=== PATIENT | female | born 1960 | race Caucasian/White ===

== ENCOUNTER 2018-09-16 20:20 | Observation (INO) | payer BC ==
--- NOTE | 2018-09-16 20:23 | ERPHSYRPT ---
- History of Present Illness Time Seen by Provider: 09/16/18 20:23 Historian: patient Exam Limitations: no limitations Physician History: 58 y/o white female presents with 2 hour h/o of gradually worsening generalized abd pain. no associated n/v/d. no cp. no prior abd surgeries. pt has not had a good bm in several day. never had this before. pt has been worked up for gallbladder issues but was feeling better so never completed workup and did not schedule HIDA scan she was suppose to. denies trauma to abd Timing/Duration: hour(s) (2), sudden, worse Activities at Onset: other (pt had long mamie reynaldo for lunch and pizza for supper. ) Abdominal Pain Onset Location: generalized abdomen Pain Radiation: no radiation Severity of Pain-Max: moderate Severity of Pain-Current: moderate Associated Symptoms: No diarrhea, No nausea, No vomiting Previous symptoms: no prior history Allergies/Adverse Reactions: No Known Drug Allergies Allergy (Unverified 04/24/12 11:20) Home Medications: No Reportable Medications [No Reported Medications] 09/16/18 [History] Hx Influenza Vaccination/Date Given: No Hx Pneumococcal Vaccination/Date Given: No - Review of Systems Constitutional: No Symptoms Eyes: No Symptoms Ears, Nose, & Throat: No Symptoms Respiratory: No Symptoms Cardiac: No Symptoms Abdominal/Gastrointestinal: Abdominal Pain (generalized), No Nausea, No Vomiting , No Diarrhea Genitourinary Symptoms: No Symptoms Musculoskeletal: No Symptoms Skin: No Symptoms Neurological: No Symptoms Psychological: No Symptoms Endocrine: No Symptoms Hematologic/Lymphatic: No Symptoms Immunological/Allergic: No Symptoms All Other Systems: Reviewed and Negative - Past Medical History Pertinent Past Medical History: Yes Neurological History: No Pertinent History ENT History: No Pertinent History Cardiac History: No Pertinent History Respiratory History: No Pertinent History Endocrine Medical History: No Pertinent History Musculoskeletal History: No Pertinent History GI Medical History: Gallbladder Disease, GI Bleed, Polyps History: No Pertinent History Psycho-Social History: No Pertinent History Female Reproductive Disorders: No Pertinent History Other Medical History: anemia inpast - Past Surgical History Past Surgical History: Yes Neuro Surgical History: No Pertinent History Cardiac: No Pertinent History Respiratory: No Pertinent History Gastrointestinal: No Pertinent History Genitourinary: No Pertinent History Musculoskeletal: No Pertinent History Female Surgical History: Tubal Ligation - Social History Smoking Status: Former smoker Drug Use: none - Nursing Vital Signs Nursing Vital Signs: Initial Vital Signs Temperature 97.7 F 09/16/18 20:37 Pulse Rate 85 09/16/18 20:37 Respiratory Rate 17 09/16/18 20:37 Blood Pressure 138/76 09/16/18 20:37 O2 Sat by Pulse Oximetry 100 09/16/18 20:37 Pain Scale Pain Intensity 6 - Physical Exam General Appearance: moderate distress, alert, anxiety, thin Eye Exam: PERRL/EOMI, eyes nml inspection Ears, Nose, Throat Exam: normal ENT inspection, moist mucous membranes Neck Exam: normal inspection, non-tender, supple, full range of motion Respiratory Exam: normal breath sounds, lungs clear, airway intact, No chest tenderness, No respiratory distress Cardiovascular Exam: regular rate/rhythm, normal heart sounds, normal peripheral pulses Gastrointestinal/Abdomen Exam: soft, normal bowel sounds, tenderness ( generalized), guarding, No rebound Pelvic Exam: not done Rectal Exam: not done Back Exam: normal inspection, normal range of motion, No CVA tenderness, No vertebral tenderness Extremity Exam: normal inspection, normal range of motion, pelvis stable Neurologic Exam: alert, oriented x 3, cooperative, air pollution specialist II-XII nml as tested, normal mood/affect, nml cerebellar function, nml station & gait Skin Exam: normal color, warm, dry Lymphatic Exam: No adenopathy SpO2 Interpretation: normal O2 Delivery: Room Air - Course Nursing assessment & vital signs reviewed: Yes Ordered Tests: Active Orders 24 hr Category Date Time Status Enema STAT Care 09/16/18 21:15 Active Enema STAT Care 09/16/18 22:58 Active IV Insertion STAT Care 09/16/18 20:34 Active ABDOMEN AND PELVIS W/0 CONTRAS [CT] Stat Exams 09/16/18 20:34 Taken AMYLASE Stat Lab 09/16/18 20:35 Completed CBC W DIFF Stat Lab 09/16/18 20:35 Completed CMP Stat Lab 09/16/18 20:35 Completed CULTURE,URINE Stat Lab 09/16/18 21:35 Received LIPASE Stat Lab 09/16/18 20:35 Completed Lactic Acid Stat Lab 09/16/18 20:52 Completed Lactic Acid Stat Lab 09/16/18 23:06 Ordered UA W/RFX UR CULTURE Stat Lab 09/16/18 21:35 Completed Medication Summary Generic Name Dose Route Start Last Admin Trade Name Freq PRN Reason Stop Dose Admin Sodium Chloride 1,000 mls @ 999 mls/hr 09/16/18 23:09 Sodium Chloride 0.9% 1000 Ml IV 09/17/18 00:09 .Q1H1M STA Discontinued Medications Generic Name Dose Route Start Last Admin Trade Name Orion PRN Reason Stop Dose Admin Sodium Chloride 1,000 mls @ 999 mls/hr 09/16/18 20:34 09/16/18 21:45 Sodium Chloride 0.9% 1000 Ml IV 09/16/18 21:34 Infused .Q1H1M STA Infusion Sodium Chloride Confirm 09/16/18 20:38 Sodium Chloride 0.9% 1000 Ml Administered 09/16/18 20:39 Dose 1,000 mls @ ud .ROUTE .STK-MED ONE Magnesium Citrate 150 ml 09/16/18 22:04 09/16/18 22:07 Citroma 296 Ml PO 09/16/18 22:05 150 ml 1XONLY ONE Administration Magnesium Citrate Confirm 09/16/18 22:06 Citroma 296 Ml Administered 09/16/18 22:07 Dose 296 ml .ROUTE .STK-MED ONE Magnesium Citrate 150 ml 09/16/18 22:58 09/16/18 23:01 Citroma 296 Ml PO 09/16/18 22:59 150 ml 1XONLY ONE Administration Meperidine HCl 50 mg 09/16/18 20:35 09/16/18 20:44 Demerol 50 Mg IV 09/16/18 20:36 50 mg STAT ONE Administration Meperidine HCl Confirm 09/16/18 20:38 Demerol 50 Mg Administered 09/16/18 20:39 Dose 50 mg .ROUTE .STK-MED ONE Ondansetron HCl 4 mg 09/16/18 20:34 09/16/18 20:44 Zofran 4 Mg/2 Ml Vial IV 09/16/18 20:35 4 mg STAT ONE Administration Ondansetron HCl Confirm 09/16/18 20:38 Zofran 4 Mg/2 Ml Vial Administered 09/16/18 20:39 Dose 4 mg .ROUTE .STK-MED ONE Potassium Bicarbonate 25 meq 09/16/18 23:45 K-Lyte 25 Meq PO 09/16/18 23:46 STAT ONE Lab/Rad Data: Laboratory Result Diagrams 09/16/18 20:35 09/16/18 20:35 Laboratory Results 09/16/18 09/16/18 09/16/18 Range/Units 21:35 20:52 20:35 WBC (4.0-10.5) K/mm3 RBC (4.1-5.4) M/mm3 Hgb (12.0-16.0) gm/dl Hct (35-47) % MCV (78-100) fl MCH (26-32) pg MCHC (32-36) g/dl RDW (11.5-14.0) % Plt Count (150-450) K/mm3 MPV (6-9.5) fl Gran % (36.0-66.0) % Eos # (Auto) (0-0.5) Absolute Lymphs (auto) (1.0-4.6) Absolute Monos (auto) (0.0-1.3) Lymphocytes % (24.0-44.0) % Monocytes % (0.0-12.0) % Eosinophils % (0.00-5.0) % Basophils % (0.0-0.4) % Absolute Granulocytes (1.4-6.9) Basophils # (0-0.4) Sodium 140 (137-145) mmol/L Potassium 3.1 L (3.5-5.1) mmol/L Chloride 103 (98-107) mmol/L Carbon Dioxide 20 L (22-30) mmol/L Anion Gap 20.4 H (5-15) MEQ/L BUN 16 (7-17) mg/dL Creatinine 0.58 (0.52-1.04) mg/dL Estimated GFR > 60.0 ML/MIN Glucose 141 H (74-106) mg/dL Lactic Acid 5.3 H (0.4-2.0) Calcium 9.9 (8.4-10.2) mg/dL Total Bilirubin 0.50 (0.2-1.3) mg/dL AST 24 (14-36) U/L ALT 20 (0-35) U/L Alkaline Phosphatase 74 (38-126) U/L Serum Total Protein 8.0 (6.3-8.2) g/dL Albumin 4.7 (3.5-5.0) g/dL Amylase 109 (30-110) U/L Lipase 65 (23-300) U/L Urine Color YELLOW (YELLOW) Urine Appearance TURBID (CLEAR) Urine pH 8.0 (5-6) Ur Specific [place] 1.016 (1.005-1.025) Urine Protein NEGATIVE (Negative) Urine Ketones TRACE (NEGATIVE) Urine Blood SMALL (0-5) Baltazar/ul Urine Nitrite NEGATIVE (NEGATIVE) Urine Bilirubin NEGATIVE (NEGATIVE) Urine Urobilinogen NEGATIVE (0-1) mg/dL Ur Leukocyte Esterase NEGATIVE (NEGATIVE) Urine WBC (Auto) 3-5 (0-5) /HPF Urine RBC (Auto) 3-5 (0-2) /HPF U Epithel Cells (Auto) NONE (FEW) /HPF Urine Bacteria (Auto) RARE (NEGATIVE) /HPF Urine Culture Reflexed YES (NO) Urine Glucose 50 (NEGATIVE) mg/dL 09/16/18 Range/Units 20:35 WBC 9.1 (4.0-10.5) K/mm3 RBC 4.31 (4.1-5.4) M/mm3 Hgb 12.7 (12.0-16.0) gm/dl Hct 38.2 (35-47) % MCV 88.6 (78-100) fl MCH 29.5 (26-32) pg MCHC 33.2 (32-36) g/dl RDW 13.1 (11.5-14.0) % Plt Count 300 (150-450) K/mm3 MPV 9.8 H (6-9.5) fl Gran % 48.8 (36.0-66.0) % Eos # (Auto) 0.13 (0-0.5) Absolute Lymphs (auto) 3.63 (1.0-4.6) Absolute Monos (auto) 0.87 (0.0-1.3) Lymphocytes % 39.8 (24.0-44.0) % Monocytes % 9.5 (0.0-12.0) % Eosinophils % 1.4 (0.00-5.0) % Basophils % 0.5 (0.0-0.4) % Absolute Granulocytes 4.44 (1.4-6.9) Basophils # 0.05 (0-0.4) Sodium (137-145) mmol/L Potassium (3.5-5.1) mmol/L Chloride (98-107) mmol/L Carbon Dioxide (22-30) mmol/L Anion Gap (5-15) MEQ/L BUN (7-17) mg/dL Creatinine (0.52-1.04) mg/dL Estimated GFR ML/MIN Glucose (74-106) mg/dL Lactic Acid (0.4-2.0) Calcium (8.4-10.2) mg/dL Total Bilirubin (0.2-1.3) mg/dL AST (14-36) U/L ALT (0-35) U/L Alkaline Phosphatase (38-126) U/L Serum Total Protein (6.3-8.2) g/dL Albumin (3.5-5.0) g/dL Amylase (30-110) U/L Lipase (23-300) U/L Urine Color (YELLOW) Urine Appearance (CLEAR) Urine pH (5-6) Ur Specific [place] (1.005-1.025) Urine Protein (Negative) Urine Ketones (NEGATIVE) Urine Blood (0-5) Baltazar/ul Urine Nitrite (NEGATIVE) Urine Bilirubin (NEGATIVE) Urine Urobilinogen (0-1) mg/dL Ur Leukocyte Esterase (NEGATIVE) Urine WBC (Auto) (0-5) /HPF Urine RBC (Auto) (0-2) /HPF U Epithel Cells (Auto) (FEW) /HPF Urine Bacteria (Auto) (NEGATIVE) /HPF Urine Culture Reflexed (NO) Urine Glucose (NEGATIVE) mg/dL - Progress Progress: improved, re-examined Progress Note: 09/16/18 22:26 ct abd/pelvis-increased fecal retention in colon. no evidence of acute appendicitis. no other acute process. 09/16/18 22:39 pt had moderate bm. sx improved. Counseled pt/family regarding: lab results, diagnosis, need for follow-up, rad results - Departure Departure Disposition: Home Clinical Impression: Constipation, Hypokalemia Condition: Stable Critical Care Time: No Referrals: FINESSE DE LA CRUZ [Primary Care Provider] - Additional Instructions: clear liquid diet for next 12 hours. advance to full liquid diet then regular diet over 12 hours. avoid fatty, greasy spicy foods. follow up with your primary doctor for further management
[2018-09-16] MEDS ORDERED: Zofran 4 MG/2 ML VIAL IV ONE (20:34)
[2018-09-16] MEDS ORDERED: Sodium Chloride 0.9% 1000 ML 1,000 ML IV STA ×2 (20:34→23:09)
[2018-09-16] MEDS ORDERED: DEMEROL 50 MG IV ONE (20:35)
[2018-09-16] MEDS ORDERED: Zofran 4 MG/2 ML VIAL ONE (20:38)
[2018-09-16] MEDS ORDERED: Sodium Chloride 0.9% 1000 ML 1,000 ML ONE (20:38)
[2018-09-16] MEDS ORDERED: DEMEROL 50 MG ONE (20:38)
[2018-09-16 20:51] LABS: BASOPHIL % 0.5 % (0.0-0.4); Basophil (Absolute #) 0.05 (0-0.4); Eosinophil % 1.4 % (0.00-5.0); Eosinophil (Absolute #) 0.13 (0-0.5); Granulocyte Absolute (ANC) 4.44 (1.4-6.9); Granulocytes % 48.8 % (36.0-66.0); Hematocrit 38.2 % (35-47); Hemoglobin 12.7 gm/dl (12.0-16.0); Lymphocyte (Absolute #) 3.63 (1.0-4.6); Lymphocytes % 39.8 % (24.0-44.0); Mean Cell Volume 88.6 fl (78-100); Mean Corpuscular Hemoglobin 29.5 pg (26-32); Mean Corpuscular Hgb Concent. 33.2 g/dl (32-36); Mean Platelet Volume 9.8 fl (6-9.5); Monocytes % 9.5 % (0.0-12.0); Platelet Count 300 K/mm3 (150-450); Red Blood Count 4.31 M/mm3 (4.1-5.4); Red Cell Distribution Width 13.1 % (11.5-14.0); White Blood Count 9.1 K/mm3 (4.0-10.5)
[2018-09-16 20:57] LABS: ALBUMIN 4.7 g/dL (3.5-5.0); ALKALINE PHOSPHATASE 74 U/L (38-126); AMYLASE 109 U/L (30-110); ANION GAP 20.4 MEQ/L (5-15); BLOOD UREA NITROGEN 16 mg/dL (7-17); CHLORIDE 103 mmol/L (98-107); Calcium 9.9 mg/dL (8.4-10.2); Carbon Dioxide 20 mmol/L (22-30); Creatinine 1 0.58 mg/dL (0.52-1.04); Glucose 141 mg/dL (74-106); LIPASE 65 U/L (23-300); SGOT/AST 24 U/L (14-36); SGPT/ALT 20 U/L (0-35); SODIUM 140 mmol/L (137-145)
[2018-09-16 20:59] LABS: Potassium 3.1 mmol/L (3.5-5.1)
[2018-09-16 21:07] LABS: Lactic Acid 5.3 (0.4-2.0)
[2018-09-16 21:57] LABS: Appearance TURBID (CLEAR); Bacteria RARE /HPF (NEGATIVE); Bilirubin NEGATIVE (NEGATIVE); Blood SMALL Ery/ul (0-5); Glucose 50 mg/dL (NEGATIVE); Ketones TRACE (NEGATIVE); Leukocyte Esterase NEGATIVE (NEGATIVE); Nitrite NEGATIVE (NEGATIVE); Protein,Urine Dip NEGATIVE (Negative); Specific Gravity 1.016 (1.005-1.025); Urobilinogen NEGATIVE mg/dL (0-1)
[2018-09-16] MEDS ORDERED: CITROMA 296 ML PO ONE ×2 (22:04→22:58)
[2018-09-16] MEDS ORDERED: CITROMA 296 ML ONE (22:06)
[2018-09-16] MEDS ORDERED: K-LYTE 25 MEQ PO ONE (23:45)
[2018-09-17] MEDS ORDERED: Sodium Chloride 0.9% 1000 ML 1,000 ML ONE (00:17)
[2018-09-17] MEDS ORDERED: K-LYTE 25 MEQ ONE (00:17)
[2018-09-17] MEDS ORDERED: Zofran 4 MG/2 ML VIAL ONE ×2 (00:28→00:35)
[2018-09-17] MEDS ORDERED: Phenergan 25 MG INJ ONE (00:35)
[2018-09-17] MEDS ORDERED: Hydromorphone 1 mg/ml Ampule ONE (01:39)
[2018-09-17] MEDS ORDERED: MAALOX ES 30 ML UNIT DOSE ONE (02:28)
[2018-09-17] MEDS ORDERED: XYLOCAINE HCl Viscous ONE (02:28)
[2018-09-17] MEDS ORDERED: Pepcid 20 MG VIAL IV ONE (02:42)
[2018-09-17] MEDS ORDERED: Sodium Chloride 0.9% W/ 20 mEq KCl/LITER 1,000 ML IV ONE (02:44)
[2018-09-17] MEDS ORDERED: Hydromorphone 1 mg/ml Ampule IV PRN (03:51)
[2018-09-17] MEDS ORDERED: Zofran 4 MG/2 ML VIAL IV PRN (03:53)
[2018-09-17] MEDS ORDERED: Sodium Chloride 0.9% W/ 20 mEq KCl/LITER 1,000 ML IV SCH (04:00)
[2018-09-17 05:46] LABS: Hematocrit 34.2 % (35-47); Hemoglobin 11.4 gm/dl (12.0-16.0); Mean Cell Volume 89.8 fl (78-100); Mean Corpuscular Hemoglobin 29.9 pg (26-32); Mean Corpuscular Hgb Concent. 33.3 g/dl (32-36); Mean Platelet Volume 9.9 fl (6-9.5); Platelet Count 204 K/mm3 (150-450); Red Blood Count 3.81 M/mm3 (4.1-5.4); Red Cell Distribution Width 13.1 % (11.5-14.0); White Blood Count 10.7 K/mm3 (4.0-10.5)
[2018-09-17 06:09] LABS: ALKALINE PHOSPHATASE 61 U/L (38-126); AMYLASE 95 U/L (30-110); ANION GAP 16.3 MEQ/L (5-15); BLOOD UREA NITROGEN 10 mg/dL (7-17); CHLORIDE 102 mmol/L (98-107); Carbon Dioxide 23 mmol/L (22-30); Creatinine 1 0.43 mg/dL (0.52-1.04); Glucose 143 mg/dL (74-106); LIPASE 20 U/L (23-300); Potassium 4.1 mmol/L (3.5-5.1); SGOT/AST 21 U/L (14-36); SGPT/ALT 17 U/L (0-35); SODIUM 137 mmol/L (137-145); Total Protein 6.9 g/dL (6.3-8.2)
[2018-09-17] MEDS ORDERED: DILAUDID 2 MG INJECTION IV PRN (07:23)
[2018-09-17 07:32] VITALS: BP 121/59; PULSE 71; O2SAT 97
--- NOTE | 2018-09-17 08:58 | XRAY ---
Indication: Abdomen pain. Multiple contiguous axial images obtained through the abdomen and pelvis without contrast as ordered. Comparison: None Lung bases clear. Heart is not enlarged. Stomach is moderately distended with food/fluid. Noncontrasted stomach and bowel loops appear nonobstructed. Normal appendix. There is moderate diffuse scattered colonic fecal debris throughout. Tiny right adnexa free fluid presumed physiologic from rupture/leaking cyst. No free air. Tiny calcified splenic granuloma. Remaining liver, gallbladder, pancreas, spleen, adrenal glands, kidneys, ureters, bladder, uterus, and aorta appear unremarkable for noncontrast exam. Osseous structures intact with mild L4-L5 a degenerative changes. No ventral or inguinal hernias. Impression: 1. Diffuse fecal stasis. 2. Tiny right adnexa free fluid presumed physiologic. 3. Remaining CT abdomen/pelvis without contrast exam is negative. Comment: Preliminary interpretation was made by [facility]. No critical discrepancy. CT DI 8.49
--- NOTE | 2018-09-17 11:47 | SSS ---
DISCHARGE DIAGNOSIS: RIGHT UPPER QUADRANT ABDOMINAL PAIN. HISTORY: The patient is a 58 year-old white female who reports she ate at [employer] yesterday after which she had excruciating pain in the right upper quadrant . She reports it was worse than when she had childbirth. The patient has had previous episodes five years ago and then two months ago for which she had gallbladder ultrasound but no HIDA scan. The pain is in the right upper quadrant and is tender to palpation. PAST MEDICAL HISTORY: The patient's medical history is otherwise significantly only for tubal ligation. MEDICATIONS: She is on no medications. ALLERGIES: NKDA. PHYSICAL EXAMINATION: The patient's vital signs on admission showed a temperature 97.7F, pulse 85, respiratory rate 17, blood pressure 138/76. O2 saturation 100%. HEENT: Normocephalic, atraumatic. Pupils equal round reactive to light. Extraocular movements intact. Oropharynx is pink and moist. NECK: Supple without lymphadenopathy, thyromegaly or JVD. CHEST: Clear to auscultation. HEART: Regular rate and rhythm. ABDOMEN: Soft. No palpable masses. Tender in the right upper quadrant. No guarding or rebound. EXTREMITIES: Without cyanosis, clubbing or edema. NEUROLOGIC: The patient is alert and oriented x3. No focal deficits noted. LAB DATA AND TESTS: Significant for initial lactic acid of 5.0 but then reduced to 1.7 after IV fluid hydration. The patient's white blood cell count was 9,100, hemoglobin 12.7, PLT 200,000. Sugar 141 nonfasting. BUN 16, creatinine 0.058. Electrolytes showed potassium to be slightly low at 3.1. Liver enzymes were normal. Amylase and lipase were normal. UA was essentially normal specific gravity 1.016, 3-5 white blood cell per high power field, negative nitrite. CT scan showed no evidence of appendicitis. There was increased fecal retention in the colon. No other abnormalities were noted. No calcified stones. No dilated ducts of the gallbladder and normal gallbladder otherwise on CT. HOSPITAL COURSE: In the emergency room, the patient did receive treatment for bowel issues which caused her to be nauseated and vomit. The patient since has been in the hospital lipscomb and has been fine and feeling well but has not had anything to eat. We will advance her diet to liquids and if she is able to keep liquids down she will be discharged home with instructions to have an outpatient HIDA scan and follow up with her primary care physician.
== END 2018-09-17 10:40 | disposition home or self-care (01) ==
LOC: ED 20:20 → MED SURG 09-17 03:35
PROVIDERS: ADMIT Family Medicine; ATTEND Family Medicine
DX: R10.11 Right upper quadrant pain (principal); R11.2 Nausea with vomiting, unspecified; K59.00 Constipation, unspecified
CPT/HCPCS: 36000; 36415; 74176; 80053; 81001; 82150; 83605; 83690; 85025; 85027; 87086; 96360; 96361; 96374; 96375; 99285; G0378; J1170; J2175; J2405; J2550; A9270-GY

== ENCOUNTER 2018-11-21 06:00 | Day surgery (SDC) | payer BC ==
[2018-11-21] MEDS ORDERED: Lactated Ringers 1,000 ML IV SCH (06:30)
[2018-11-21] MEDS ORDERED: DIPRIVAN 200 MG/20 ML IV ONE (07:57)
[2018-11-21] MEDS ORDERED: Ketamine HCl 50 MG/ML ONE (07:58)
--- NOTE | 2018-11-21 08:29 | OP ---
SURGERY DATE/TIME: 11/21/2018 0800 PREOPERATIVE DIAGNOSIS: Epigastric pain. POSTOPERATIVE DIAGNOSIS: Mild gastritis. PROCEDURE: Esophagogastroduodenoscopy with cold forceps biopsy of the gastric antrum. SURGEON: Dr. Novoa. ANESTHESIA: Medications were given by the anesthesia department. BRIEF HISTORY: The patient is a 58 year old white female who presents for endoscopic evaluation. She reports she has been having problems with epigastric pain for several months. She reports over the past month she has been taking omeprazole with some relief but persistent bloating and epigastric pain. She reports taking no [id number] medications. She specifically denies taking any anti-inflammatories. The patient was felt the need to have endoscopic evaluation. She was appraised of the risks of the procedure including the risk of perforation, phlebitis, untoward reaction to medication, bleeding and missed lesions. The patient verbalized her understanding and desired to have the procedure performed. DESCRIPTION OF PROCEDURE: The patient was given the medications by the anesthesia department. She had continuous pulse oximetry, ECG monitoring, intermittent blood pressure monitoring and tidal CO2 monitoring during the examination. She was placed in the left lateral decubitus position. A bite block was placed and the flexible Olympus gastroscope was used to intubate the oropharynx. A view of the larynx was obtained and was normal. The scope was easily introduced in the esophagus which appeared to be normal throughout its length. The stomach was entered where normal gastric rugal folds were seen and these distended nicely with insufflation of air. The scope was passed along the greater curvature of the stomach to the antrum. The pylorus was encountered and intubated. Duodenum inspected and found to be normal. The scope is withdrawn towards the stomach. Again, a retroflex view was obtained of the lesser curvature, fundus and cardia regions of the stomach and these appeared to be normal as well. The scope was then redirected towards the gastric antrum and biopsies were obtained to rule out the presence of Helicobacter pylori-type organisms. The scope was then removed from the patient who tolerated the procedure well and sent back to outpatient recovery in good condition.
[2018-11-21 09:09] VITALS: BP 152/73; PULSE 56; O2SAT 99
== END 2018-11-21 09:28 | disposition home or self-care (01) ==
LOC: SDC 06:00
PROVIDERS: ATTEND Family Medicine
DX: K29.70 Gastritis, unspecified, without bleeding (principal); R10.13 Epigastric pain; D64.9 Anemia, unspecified
CPT/HCPCS: 88305; J2704